=== PATIENT | male | born 1965 | race Two or more races ===

== ENCOUNTER 2017-03-26 12:48 | Emergency (ER) | payer OTHER ==
--- NOTE | 2017-03-26 14:00 | RAD ---
Indication: Left flank pain. CT of the abdomen and pelvis was performed without oral or IV contrast administration. Coronal and sagittal reconstructed images were obtained. The lung bases demonstrate no pleural fluid, nodules or masses. Heart is of normal size without evidence of pericardial effusion. The liver is normal in size. It is diffusely decreased in density consistent with hepatic steatosis. The gallbladder demonstrates no calcified gallstones. No pericholecystic fluid or wall thickening is identified. Common duct is not dilated. The pancreas demonstrates no mass or pancreatic ductal dilatation. The spleen is normal in size. No adrenal masses are noted. The kidneys demonstrates mild left hydronephrosis. There is a calculus in the proximal left ureter measuring up to 5 mm. Fullness of left renal collecting system is noted. The right renal collecting system is unremarkable. The urinary bladder is otherwise unremarkable. The right kidney shows no hydronephrosis. No retroperitoneal adenopathy is noted. Atherosclerotic aorta is noted. No dilated loops of bowel are noted. No hernias are noted. IMPRESSION: Calculus in the proximal left ureter with fullness of left renal collecting system measuring 5 mm. Hepatic steatosis is noted.
[2017-03-26 14:04] LABS: Hematocrit 45 % (42-52); Hemoglobin 15.5 g/dl (14.0-18.0); Mean Corpuscular HGB Conc 34 g/dl (31-36); Mean Corpuscular Hemoglobin 30 pg (27-31); Mean Corpuscular Volume 89 fL (80-94); Mean Platelet Volume 8 um3 (7.4-10.4); Red Blood Count 5.11 10^6/ul (4.0-5.4); Red Cell Distribution Width 13 % (10.5-15); White Blood Count 9.3 10^3/ul (3.5-10.8)
[2017-03-26 14:21] LABS: Albumin 4.1 g/dL (3.2-5.2); BUN/Creatinine Ratio 22.8 (8-20); C Reactive Protein 2.33 mg/L (< 5.00); Calcium 9.6 mg/dL (8.6-10.3); EGFR African American 99.4 (>60); EGFR Non-African American 77.3 (>60); Potassium 4.2 mmol/L (3.5-5.0); Total Bilirubin 0.5 mg/dL (0.2-1.0); Total Protein 7.1 g/dL (6.4-8.9)
[2017-03-26 15:41] LABS: Urine Bacteria Absent (Absent); Urine Bilirubin Negative (Negative); Urine Glucose Negative (Negative); Urine Nitrite Negative (Negative)
[2017-03-26] MEDS ORDERED: Ketorolac INJ* 30 MG/ML 1 ML VIAL IV ONE (16:13)
[2017-03-26] MEDS ORDERED: NS 0.9% 1000 ML* 1,000 ML IV ONE (16:13)
[2017-03-26] MEDS ORDERED: HYDROmorphone INJ* 1 MG/ML CARPUJECT SYRINGE IV ONE (16:13)
[2017-03-26] MEDS ORDERED: Ondansetron INJ* 2 MG/ML VIAL IV ONE (16:13)
[2017-03-26] MEDS ORDERED: oxyCODONE/Acetamin 5/325 MG* TAB PO ONE (18:35)
[2017-03-26] MEDS ORDERED: Tamsulosin CAP* 0.4 MG PO ONE (18:36)
[2017-03-26 19:07] VITALS: BP 128/66
--- NOTE | 2017-03-26 21:44 | ED ---
Carson Cortes Nilda, scribed for Chuck Randolph MD on 03/26/17 at 1323 . Abdominal Pain/Male - HPI Summary HPI Summary: This patient is a 52 year old M presenting to [facility] with a chief complaint of constant moderate LLQ pain since this morning. Two days ago patient felt similar pain but it resolved. The patient rates the pain 7/10 in severity. Symptoms aggravated by movement and alleviated by rest. Patient reports hematuria today and denies similar episodes. - History of Current Complaint Chief Complaint: EDAbdPain Stated Complaint: URINATING BLOOD/ABD PAIN Time Seen by Provider: 03/26/17 13:13 Onset/Duration: Sudden Onset, Lasting Days, Still Present Timing: Lasting Hours Severity Currently: Moderate Pain Intensity: 7 Pain Scale Used: 0-10 Numeric Location: Discrete At: LLQ Radiates: No Aggravating Factor(s): Movement Alleviating Factor(s): Position Associated Signs And Symptoms: Positive: Other - hematuria - Allergies/Home Medications Allergies/Adverse Reactions: Allergies Allergy/AdvReac Type Severity Reaction Status Date / Time No Known Allergies Allergy Verified 03/26/17 12:53 PMH/Surg Hx/FS Hx/Imm Hx Sensory History: Denies: Hx Legally Blind EENT History: Denies: Hx Deafness Infectious Disease History: No Infectious Disease History: Denies: Traveled Outside the [place] in Last 30 Days - Family History Known Family History: Positive: Hypertension, Diabetes - Social History Alcohol Use: None Substance Use Type: Reports: None Smoking Status (MU): Never Smoked Tobacco Review of Systems Positive: Abdominal Pain - LLQ Positive: hematuria All Other Systems Reviewed And Are Negative: Yes Physical Exam Triage Information Reviewed: Yes Vital Signs On Initial Exam: Initial Vitals Temp Pulse Resp BP Pulse Ox 97.8 F 60 20 146/69 100 03/26/17 12:50 03/26/17 12:50 03/26/17 12:50 03/26/17 12:50 03/26/17 12:50 Vital Signs Reviewed: Yes Appearance: Positive: Well-Appearing, No Pain Distress Skin: Positive: Warm, Skin Color Reflects Adequate Perfusion, Dry Head/Face: Positive: Normal Head/Face Inspection Eyes: Positive: Normal ENT: Positive: Normal ENT inspection Neck: Positive: Supple, Nontender Respiratory/Lung Sounds: Positive: Clear to Auscultation, Breath Sounds Present Cardiovascular: Positive: RRR Abdomen Description: Positive: Soft, Other: - mild LLQ tenderness Bowel Sounds: Positive: Present Musculoskeletal: Positive: Normal Neurological: Positive: Normal Psychiatric: Positive: Normal, Affect/Mood Appropriate - [place] Coma Scale Coma Scale Total: 15 Diagnostics - Vital Signs Vital Signs Temp Pulse Resp BP Pulse Ox 03/26/17 12:50 97.8 F 60 20 146/69 100 - Laboratory Lab Results: Lab Results 03/26/17 03/26/17 03/26/17 Range/Units 13:54 13:54 13:54 WBC 9.3 (3.5-10.8) 10^3/ul RBC 5.11 (4.0-5.4) 10^6/ul Hgb 15.5 (14.0-18.0) g/dl Hct 45 (42-52) % MCV 89 (80-94) fL MCH 30 (27-31) pg MCHC 34 (31-36) g/dl RDW 13 (10.5-15) % Plt Count 228 (150-450) 10^3/ul MPV 8 (7.4-10.4) um3 Neut % (Auto) 70.7 (38-83) % Lymph % (Auto) 20.5 L (25-47) % [place] % (Auto) 6.9 (1-9) % Eos % (Auto) 1.1 (0-6) % Baso % (Auto) 0.8 (0-2) % Absolute Neuts (auto) 6.5 (1.5-7.7) 10^3/ul Absolute Lymphs (auto) 1.9 (1.0-4.8) 10^3/ul Absolute Monos (auto) 0.6 (0-0.8) 10^3/ul Absolute Eos (auto) 0.1 (0-0.6) 10^3/ul Absolute Basos (auto) 0.1 (0-0.2) 10^3/ul Absolute Nucleated RBC 0 10^3/ul Nucleated RBC % 0 Sodium 137 (133-145) mmol/L Potassium 4.2 (3.5-5.0) mmol/L Chloride 107 (101-111) mmol/L Carbon Dioxide 26 (22-32) mmol/L Anion Gap 4 (2-11) mmol/L BUN 23 (6-24) mg/dL Creatinine 1.01 (0.67-1.17) mg/dL Est GFR ( Amer) 99.4 (>60) Est GFR (Non-Af Amer) 77.3 (>60) BUN/Creatinine Ratio 22.8 H (8-20) Glucose 92 (70-100) mg/dL Lactic Acid 0.8 (0.5-2.0) mmol/L Calcium 9.6 (8.6-10.3) mg/dL Total Bilirubin 0.50 (0.2-1.0) mg/dL AST 29 (13-39) U/L ALT 40 (7-52) U/L Alkaline Phosphatase 53 (34-104) U/L C-Reactive Protein 2.33 (< 5.00) mg/L Total Protein 7.1 (6.4-8.9) g/dL Albumin 4.1 (3.2-5.2) g/dL Globulin 3.0 (2-4) g/dL Albumin/Globulin Ratio 1.4 (1-3) Urine Color Urine Appearance Urine pH (5-9) Ur Specific [place] (1.010-1.030) Urine Protein (Negative) Urine Ketones (Negative) Urine Blood (Negative) Urine Nitrate (Negative) Urine Bilirubin (Negative) Urine Urobilinogen (Negative) Ur Leukocyte Esterase (Negative) Urine WBC (Auto) (Absent) Urine RBC (Auto) (Absent) Urine Bacteria (Absent) Urine Glucose (Negative) 03/26/17 Range/Units 15:15 WBC (3.5-10.8) 10^3/ul RBC (4.0-5.4) 10^6/ul Hgb (14.0-18.0) g/dl Hct (42-52) % MCV (80-94) fL MCH (27-31) pg MCHC (31-36) g/dl RDW (10.5-15) % Plt Count (150-450) 10^3/ul MPV (7.4-10.4) um3 Neut % (Auto) (38-83) % Lymph % (Auto) (25-47) % [place] % (Auto) (1-9) % Eos % (Auto) (0-6) % Baso % (Auto) (0-2) % Absolute Neuts (auto) (1.5-7.7) 10^3/ul Absolute Lymphs (auto) (1.0-4.8) 10^3/ul Absolute Monos (auto) (0-0.8) 10^3/ul Absolute Eos (auto) (0-0.6) 10^3/ul Absolute Basos (auto) (0-0.2) 10^3/ul Absolute Nucleated RBC 10^3/ul Nucleated RBC % Sodium (133-145) mmol/L Potassium (3.5-5.0) mmol/L Chloride (101-111) mmol/L Carbon Dioxide (22-32) mmol/L Anion Gap (2-11) mmol/L BUN (6-24) mg/dL Creatinine (0.67-1.17) mg/dL Est GFR ( Amer) (>60) Est GFR (Non-Af Amer) (>60) BUN/Creatinine Ratio (8-20) Glucose (70-100) mg/dL Lactic Acid (0.5-2.0) mmol/L Calcium (8.6-10.3) mg/dL Total Bilirubin (0.2-1.0) mg/dL AST (13-39) U/L ALT (7-52) U/L Alkaline Phosphatase (34-104) U/L C-Reactive Protein (< 5.00) mg/L Total Protein (6.4-8.9) g/dL Albumin (3.2-5.2) g/dL Globulin (2-4) g/dL Albumin/Globulin Ratio (1-3) Urine Color Yellow Urine Appearance Cloudy Urine pH 5.0 (5-9) Ur Specific [place] 1.010 (1.010-1.030) Urine Protein Negative (Negative) Urine Ketones Negative (Negative) Urine Blood 3+ H (Negative) Urine Nitrate Negative (Negative) Urine Bilirubin Negative (Negative) Urine Urobilinogen Negative (Negative) Ur Leukocyte Esterase Negative (Negative) Urine WBC (Auto) Absent (Absent) Urine RBC (Auto) 3+(>10/hpf) H (Absent) Urine Bacteria Absent (Absent) Urine Glucose Negative (Negative) Result Diagrams: 03/26/17 13:54 03/26/17 13:54 Lab Statement: Any lab studies that have been ordered have been reviewed, and results considered in the medical decision making process. - CT Abd/Pelvis CT Interpretation Completed By: Radiologist - Calculus in the proximal left ureter with fullness of left renal collecting system measuring 5 mm. Hepatic steatosis is noted. ED physician has reviewed this radiology report and agrees. Re-Evaluation - Re-Evaluation First Eval Re-Evaluation Time: 16:10 Comment: Pain has returned. Patient is in obvious discomfort. Second Eval Re-Evaluation Time: 18:30 Change: Improved Abdominal Pain Fem Course/Dx - Course Course Of Treatment: Mr Arguello was found to have a 5mm proximal left ureteral stone. He has a reasonable chance of passing it on his own, got significant pain relief here and will be treated as an outpatient. - Diagnoses Provider Diagnoses: Kidney stone Discharge - Discharge Plan Condition: Stable Disposition: HOME Prescriptions: Tamsulosin CAP* [Flomax CAP*] 0.4 mg PO DAILY #7 cap oxyCODONE/Acetamin 5/325 MG* [Percocet 5/325 TAB*] 1 tab PO Q6H PRN #20 tab MDD 4 PRN Reason: Pain Patient Education Materials: Kidney Stones (ED) Referrals: Star Mccall MD [Medical Doctor] - 1 Week () Additional Instructions: RETURN TO THE EMERGENCY DEPARTMENT FOR CHANGING OR WORSENING SYMPTOMS. The documentation as recorded by the Carson diaz Nilda accurately reflects the service I personally performed and the decisions made by , Chuck Randolph MD.
== END 2017-03-26 19:06 | disposition home or self-care (01) ==
LOC: ED 12:48
DX: N20.0 Calculus of kidney (principal); N28.89 Other specified disorders of kidney and ureter; R31.9 Hematuria, unspecified; R10.32 Left lower quadrant pain
CPT/HCPCS: 36415; 74176; 80053; 81003; 81015; 83605; 85025; 86140; 96361; 96374; 96375; 99283; A9270-GY; J1170; J1885; J2405

== ENCOUNTER → 2017-03-28 15:18 | Day surgery (SDC) | payer OTHER ==
--- NOTE | 2017-03-28 12:54 | HP ---
CC: Dr. August HISTORY AND PHYSICAL DATE OF ADMISSION: 03/28/17 ADMITTING DIAGNOSES: 1. Left hydronephrosis. 2. Calculus left ureter. PLANNED PROCEDURE: Left ureteroscopy, possible laser and stent insertion. SURGEON: Dr. Solis ADMITTING HISTORY AND PHYSICAL: Amaury Arguello is a 52-year-old gentleman who had originally presen markos to the emergency room with left flank pain, nausea and vomiting. He was noted at that time to hameed ve a 5 mm calculus in the proximal left ureter. He was seen in my office on 03/27/17 at which time h e was reasonably comfortable without any fever, and an ultrasound had revealed mild hydronephrosis w ith a calculus now in the distal left ureter. I had recommended continued conservative management wi th Flomax and the Percocet on a p.r.n. basis; however, starting earlier this morning he started havi ng increasing pain and also stated that last night he had a temperature of 100.6. He was seen in my office on an urgent basis and an ultrasound today revealed worsening left hydronephrosis with absent left ureteral jet. The calculus is still fairly small and is at the ureterovesical junction. I gave him the option of trying to continue conservative management and see if he could pass it; however, because of the degree of discomfort and because of feeling terrible in general he would like to proc eed with the left ureteroscopy. PAST MEDICAL HISTORY: Unremarkable. Specifically there is no history of diabetes mellitus or any ot her major systemic illness. MEDICATIONS ON ADMISSION: 1. Flomax 0.4 mg. 2. Percocet p.r.n. Both of these were started after the recent ER visit. ALLERGIES: No known drug allergies. PAST SURGICAL HISTORY: Significant for bilateral inguinal hernia repair. SMOKING HISTORY: He is a nonsmoker. FAMILY HISTORY: Negative for stones. REVIEW OF SYSTEMS: He denies any chest pain or shortness of breath. PHYSICAL EXAMINATION GENERAL: Reveals a pleasant uncomfortable appearing middle aged gentleman. VITAL SIGNS: Blood pressure 122/80. Pulse 65 per minute, regular. Temperature 98.3. Oxygen saturati on 95% on room air. LUNGS: Clear bilaterally. HEART: Regular rate and rhythm. S1, S2. ABDOMEN: Soft with left flank tenderness. IMPRESSION/PLAN: A 52-year-old gentleman with a small obstructing calculus in the left distal urete r who is being brought in for left ureteroscopy, possible laser and stent insertion. [id number]/[facility] #: [id number]
[~2017-03-28 15:18] MED LIST: Acetaminophen TAB* 325 MG PO PRN; HYDROmorphone INJ* 1 MG/ML CARPUJECT SYRINGE IV PRN; Ibuprofen TAB* 600 MG PO PRN; Iohexol 180 (CONTRAST) 10 ML SDV IV ONE; Lidocaine 2% PF * 5 ML VIAL ONE; Midazolam* 1 MG/ML 2 ML VIAL (2 MG) ONE; Ondansetron INJ* 2 MG/ML VIAL IV PRN; PROCHLORPERAZINE INJ 5 MG/ML 2 ML VIAL IV PRN; Propofol* 10 MG/ML 20 ML BTL IV PUSH ONE; Tamsulosin CAP* 0.4 MG ONE; cefTRIAXone(*) 2 GM ADDV.VIAL IVPB ONE; fentaNYL* 50 MCG/ML 2 ML VIAL (100 MCG VIAL) IV PRN; fentaNYL* 50 MCG/ML 2 ML VIAL (100 MCG VIAL) ONE; oxyCODONE/Acetamin 5/325 MG* TAB PO PRN
--- NOTE | 2017-03-28 18:42 | RAD ---
CPT II Codes: 6045F INDICATION: Left ureteral calculus. Approximately 3 seconds of fluoroscopy time was used. There is left ureteral calculus retrieval with 6 spot images demonstrates placement of a left ureteral stent. IMPRESSION: Fluoroscopic services provided for referring physician for left ureteral stent placement and calculus retrieval.
[2017-03-28 19:05] VITALS: BP 106/59
--- NOTE | 2017-03-29 08:11 | OP ---
CC: Dr. Felix August; Dr. Solis OPERATIVE SUMMARY: DATE OF OPERATION: 03/28/17 DATE OF : 63 SURGEON: Douglas Solis MD ANESTHESIOLOGIST: Dr. Winston ANESTHESIA: General. PRE-OP DIAGNOSES: 1. Left hydronephrosis. 2. Calculus, left ureter. POST-OP DIAGNOSES: 1. Left hydronephrosis. 2. Calculus, left ureter. 3. Enlargement of prostate (median lobe). OPERATIVE PROCEDURE: Cystoscopy, left retrograde pyelogram, left ureteroscopy and stone extraction, and left stent insertion. INDICATIONS: Amaury Arguello is a 52-year-old gentleman who has had worsening left flank pain, nause a, and vomiting secondary to a calculus in the left ureter. He has been managed conservatively, but due to worsening symptoms, is now being brought in for left ureteroscopy. COMPLICATIONS: None. POSTOPERATIVE CONDITION: Stable. OPERATIVE FINDINGS: 1. Median lobe enlargement of prostate. 2. A 5-mm calculus impacted at left ureterovesical junction with surrounding edema and inflammation . DESCRIPTION OF PROCEDURE: After induction of general anesthesia, the patient was placed in dorsal l ithotomy position. Sequential compression devices were in place and functioning. Initial cystoscop y revealed a normal-appearing urethra, mild-to- moderate degree of median lobe enlargement of the pr ostate, and a normal-appearing bladder. Some inflammatory response was noted surrounding the left o rifice, but the bladder was otherwise unremarkable. A guidewire was introduced into the left ureter . After the guidewire was advanced proximally, there was a drainage of significant amount of urine suggesting a high-grade obstruction. After completion of the initial retrograde, which revealed ful lness of the left collecting system, a 6-Tongan semi-rigid ureteroscope was introduced and advanced under direct vision. At the ureterovesical junction, a 5 to 6-mm calculus was noted to be impacted w ith surrounding edema and inflammation. Using a 3-pronged grasper, this was retrieved into the urin catherine bladder, from where it was later removed. The ureteroscope was advanced proximally to make sure there were no additional calculi and none were noted. A 6-Tongan stent was introduced and position ed under fluoroscopy with good proximal and distal positioning obtained. The bladder was emptied. The patient tolerated the procedure satisfactorily and was transferred back to the recovery area in stable condition. [id number]/[facility] #: [id number]
== END | disposition home or self-care (01) ==
LOC: OR 15:18
PROVIDERS: ATTEND Urology
DX: N13.2 Hydronephrosis with renal and ureteral calculous obstruction (principal); N40.0 Benign prostatic hyperplasia without lower urinary tract symptoms
CPT/HCPCS: 74420; 82365; 87086; 88300; C1876; J0696; J1580; J2250; J2704; J3010